=== PATIENT | male | born 1940 | race American Indian/Alaskan Native ===

== ENCOUNTER 2021-10-15 11:56 | Emergency (ER) | payer MEDICARE ==
[2021-10-15 13:47] LABS: Basophils % (Auto) 0.4 % (0.0-1.8); Eosinophils % (Auto) 0.2 % (0.0-4.3); Hematocrit 37.6 % (35.5-45.6); Hemoglobin 12.9 gm/dl (11.8-15.2); Lymphocytes # (Auto) 0.7 K/mm3 (1.2-5.4); Lymphocytes % (Auto) 10.1 % (13.4-35.0); Mean Corpuscular HGB Conc 34 % (32-34); Mean Corpuscular Volume 92 fl (84-94); Monocytes # (Auto) 0.4 K/mm3 (0.0-0.8); Monocytes % (Auto) 5.7 % (0.0-7.3); Platelet Count 238 K/mm3 (140-440); Red Blood Count 4.08 M/mm3 (3.65-5.03)
[2021-10-15 14:05] LABS: Color,Urine Straw (Yellow); RBC,Urine > 182.0 /HPF (0.0-6.0)
[2021-10-15 14:07] LABS: BUN/Creatinine Ratio 10; Blood Urea Nitrogen 13 mg/dL (9-20); Calcium 9.5 mg/dL (8.4-10.2); Hemolysis Index 6
[2021-10-15] MEDS ORDERED: cephALEXin 500 MG CAP PO ONE (22:51)
[2021-10-15] MEDS ORDERED: ACETAMINOPHEN 325 MG TAB PO ONE (22:51)
--- NOTE | 2021-10-15 22:52 | Emergency Department Report ---
ED Male HPI - General Chief complaint: Urogenital-Male Stated complaint: URINATION ISSUES Time Seen by Provider: 10/15/21 22:31 Source: patient, family, RN notes reviewed Mode of arrival: Ambulatory Limitations: No Limitations - History of Present Illness Initial comments: The patient was evaluated in the emergency department for symptoms described in the history of present illness. He/she was evaluated in the context of the global COVID-19 pandemic, which necessitated consideration that the patient might be at risk for infection with the virus that causes COVID-19. Institutional protocols and algorithms that pertain to the evaluation of pat ients at risk for COVID-19 are in a state of rapid change based on information released by regulatory bodies including the CDC and federal and state organizations. These policies and algorithms were followed during the patient's care in the emergency department. Please note that these policies, procedures and recommendations changed on a rapid basis. This patient is an 81-year-old gentleman with a history of prostate issues and dementia. He is brought to the hospital by his daughter who provides most of the history of present illness. He has been having some difficulty urinating, and he is seeing his urologist, Dr. Friedman on Sunday, for probable cystoscopic evaluation. As per his daughter, he has been having intermittent difficulty urinating. The patient had a Saenz catheter placed in the department, which resolved his symptoms. The patient himself denies all complaints. He denies testicular pain. As per his daughter, no fever, vomiting, diarrhea, focal extremity weakness and numbness or change in mental status. MD Complaint: other (Difficulty urinating) -: days(s) Consistency: now resolved (Placement of Saenz catheter) Improves with: other (Placement of Saenz catheter) urinary retention - Related Data Sexually active: Yes (Patient states she is sexually active with 1 female partner, his ) Previous Rx's Medication Instructions Recorded Last Taken Type cephALEXin [Keflex] 500 mg PO Q6HR #27 capsule 10/15/21 Unknown Rx Allergies Allergy/AdvReac Type Severity Reaction Status Date / Time No Known Allergies Allergy Unverified 10/15/21 13:26 ED Review of Systems ROS: Stated complaint: URINATION ISSUES Other details as noted in HPI Comment: Per family Constitutional: denies: fever Respiratory: denies: cough Cardiovascular: denies: chest pain Gastrointestinal: abdominal pain, diarrhea. denies: nausea, vomiting Genitourinary: as per HPI. denies: testicular pain Neurological: other (Chronic dementia). denies: weakness ED Past Medical Hx - Past Medical History Hx Dementia: Yes Additional medical history: enlarged prostate, urology hx - Medications Home Medications: Home Medications Medication Instructions Recorded Confirmed Last Taken Type cephALEXin [Keflex] 500 mg PO Q6HR #27 capsule 10/15/21 Unknown Rx ED Physical Exam - General Limitations: Other (Patient is demented) General appearance: alert (Patient is alert to name and follows commands), in no apparent distress - Head Head exam: Present: atraumatic, normocephalic - Eye Eye exam: Present: normal appearance, EOMI. Absent: nystagmus - ENT ENT exam: Present: normal exam, normal orophraynx, mucous membranes moist, normal external ear exam - Neck Neck exam: Present: normal inspection, full ROM. Absent: tenderness, meningismus - Respiratory Respiratory exam: Present: normal lung sounds bilaterally. Absent: respiratory distress, wheezes, rales, rhonchi, stridor, decreased breath sounds - Cardiovascular Cardiovascular Exam: Present: regular rate, normal rhythm, normal heart sounds. Absent: bradycardia, tachycardia, irregular rhythm, systolic murmur, diastolic murmur, rubs, gallop - GI/Abdominal GI/Abdominal exam: Present: soft. Absent: distended, tenderness, guarding, rebound, rigid, pulsatile mass - Rectal Rectal exam: Present: deferred - exam: Present: normal inspection (Chaperoned by nurse Omega Johnson), other (There is normal testicular lie. There is normal cremasteric reflex. There is no testicular tenderness. There is no testicular swelling). Absent: testicular tenderness External exam: Present: normal external exam. Absent: erythema, swelling, lesions, lacerations - Extremities Exam Extremities exam: Present: normal inspection, full ROM, other (2+ pulses noted in the bilateral upper and lower extremities. There is no palpable cord. negative Homans sign. Muscular compartments are soft. The pelvis is stable.). Absent: calf tenderness - Back Exam Back exam: Present: normal inspection. Absent: tenderness, CVA tenderness (R), CVA tenderness (L), paraspinal tenderness, vertebral tenderness - Neurological Exam Neurological exam: Present: alert, normal gait, other (There is no facial droop. The tongue is midline. EOMI. 5 out of 5 strength in 4 extremities. Sensation is intact to light touch in 4 extremities.). Absent: motor sensory deficit - Psychiatric Psychiatric exam: Present: normal affect, normal mood - Skin Skin exam: Present: warm, dry, intact, normal color. Absent: rash ED Course Vital Signs 10/15/21 13:15 Temperature 98.7 F Pulse Rate 82 Respiratory 18 Rate Blood Pressure 125/89 [Left] O2 Sat by Pulse 97 Oximetry ED Medical Decision Making - Lab Data Result diagrams: 10/15/21 13:31 10/15/21 13:31 Vital Signs 10/15/21 13:15 Temperature 98.7 F Pulse Rate 82 Respiratory 18 Rate Blood Pressure 125/89 [Left] O2 Sat by Pulse 97 Oximetry Lab Results 10/15/21 10/15/21 10/15/21 Range/Units 13:31 13:31 13:31 WBC 7.1 (4.5-11.0) K/mm3 RBC 4.08 (3.65-5.03) M/mm3 Hgb 12.9 (11.8-15.2) gm/dl Hct 37.6 (35.5-45.6) % MCV 92 (84-94) fl MCH 32 (28-32) pg MCHC 34 (32-34) % RDW 15.0 (13.2-15.2) % Plt Count 238 (140-440) K/mm3 Lymph % (Auto) 10.1 L (13.4-35.0) % Tucker % (Auto) 5.7 (0.0-7.3) % Eos % (Auto) 0.2 (0.0-4.3) % Baso % (Auto) 0.4 (0.0-1.8) % Lymph # (Auto) 0.7 L (1.2-5.4) K/mm3 Tucker # (Auto) 0.4 (0.0-0.8) K/mm3 Eos # (Auto) 0.0 (0.0-0.4) K/mm3 Baso # (Auto) 0.0 (0.0-0.1) K/mm3 Seg Neutrophils % 83.6 H (40.0-70.0) % Seg Neutrophils # 5.9 (1.8-7.7) K/mm3 Sodium 140 (137-145) mmol/L Potassium 4.0 (3.6-5.0) mmol/L Chloride 102.4 (98-107) mmol/L Carbon Dioxide 25 (22-30) mmol/L Anion Gap 17 mmol/L BUN 13 (9-20) mg/dL Creatinine 1.3 (0.8-1.3) mg/dL Estimated GFR > 60 ml/min BUN/Creatinine Ratio 10 % Glucose 98 (75-100) mg/dL Calcium 9.5 (8.4-10.2) mg/dL Urine Color Straw (Yellow) Urine Turbidity Cloudy (Clear) Specific [place] (Man) 1.010 (1.003-1.030) Ur Protein (Man) 3+ (Negative) mg/dL Ur Ketones (Man) Negative (Negative) Ur Nitrite (Man) Negative (Negative) Urine Bilirubin (Man) Negative (Negative) Urine Ictotest Not Reportable Leukocyte Esterase (Man) Small (Negative) Urine WBC (Auto) 137.0 H (0.0-6.0) /HPF Urine RBC (Auto) > 182.0 (0.0-6.0) /HPF Urine RBC (Manual) 3+ (Negative) - Medical Decision Making Differential diagnosis, including but not limited to: BPH, urinary retention, UTI, hemorrhagic cystitis, genitourinary malignancy Assessment and plan: 81-year-old gentleman with urinary hesitancy, pyuria and hematuria. He is afebrile, with reassuring vital signs, and in no acute distress. A Saenz catheter was placed. Abdomen soft and benign, without rebound, guarding or peritoneal signs. He has follow-up with his urologist in 2 days for cystoscopic evaluation. Discharged with Saenz catheter to leg bag, and empiric Keflex. Extensive discussion had with daughter at the bedside. All questions answered. Return precautions are reviewed. Switch Saenz catheter to leg bag. Patient observed in this department for hours without clinical decompensation. At the moment, he does not appear to have an emergent medical condition. Critical care attestation.: If time is entered above; I have spent that time in minutes in the direct care of this critically ill patient, excluding procedure time. ED Disposition Clinical Impression: Urinary retention, Pyuria Disposition: 01 HOME / SELF CARE / HOMELESS Is pt being admited?: No Does the pt Need Aspirin: No Condition: Good Instructions: Acute Urinary Retention, Male, [id number] Additional Instructions: Please keep the Saenz catheter in place attached to a leg bag. Patient may have some discomfort in mid penis and/or urethra from Saenz catheter, which can be expected. Patient may also have a sensation of needing to void consistently, which can be expected with Saenz catheter placement. Please take the antibiotics as directed. Cultures are sent today, and results will be available in the next 3 to 5 days. Please have your outpatient primary care doctor or urologist contact the medical records department, to follow-up on culture results. May take [id number] Tylenol or ibuprofen as needed for physical pain. Please follow-up with your urologist in 2 days as scheduled. Please return to the emergency room right away with new pain, worsened pain, migration of pain, projectile vomiting, change in mental status, confusion, inability tolerate liquid feeds, new, worsened or different symptoms not present on the initial emergency room evaluation Referrals: AGA FRIEDMAN MD [Referring] - 10/17/21 7:00 am
[2021-10-15 23:34] VITALS: BP 132/85
== END 2021-10-15 23:34 | disposition home or self-care (01) ==
LOC: ED 11:56
DX: R33.9 Retention of urine, unspecified (principal); R82.81 Pyuria
CPT/HCPCS: 36415; 51702; 80048; 81001; 85025; 87086; 99283